=== PATIENT | male | born 1980 | race Caucasian/White ===

== ENCOUNTER 2018-03-20 13:41 | Emergency (ER) | payer OTHER ==
[~2018-03-20] VITALS: Ht 172.7 cm; Wt 77.1 kg
[~2018-03-20 13:41] MED LIST: NORCO 5-325 TA1 EACH PO
[2018-03-20] MEDS ORDERED: KEFLEX500 M1 PO (14:57)
[2018-03-20] MEDS ORDERED: NORCO 5-325 TA1 EAC1 PO (14:57)
[2018-03-20 15:25] VITALS: BP 106/71
== END 2018-03-20 15:26 | disposition home or self-care (01) ==
LOC: M.ERS 13:41
DX: S61.412A Laceration without foreign body of left hand, initial encounter (principal); W23.0XXA Caught, crushed, jammed, or pinched between moving objects, initial encounter; Y93.89 Activity, other specified; Y92.89 Other specified places as the place of occurrence of the external cause; Y99.8 Other external cause status

== ENCOUNTER 2019-05-16 16:49 | Emergency (ER) | payer OTHER ==
[~2019-05-16] VITALS: Ht 172.7 cm; Wt 74.8 kg
[~2019-05-16 16:49] MED LIST changes: +KEFLEX500 M1 PO; +NORCO 5-325 TA1 EAC1 PO
[2019-05-16 16:55] VITALS: BP 133/83
[2019-05-16] MEDS ORDERED: ERYTHROMYCIN E3.5 G3 OPHTHALMIC (17:22)
== END 2019-05-16 17:27 | disposition home or self-care (01) ==
LOC: M.ERS 16:49
DX: T15.91XA Foreign body on external eye, part unspecified, right eye, initial encounter (principal); X58.XXXA Exposure to other specified factors, initial encounter; Y93.89 Activity, other specified; Y92.89 Other specified places as the place of occurrence of the external cause; Y99.8 Other external cause status